=== PATIENT | female | born 1975 | race Caucasian/White ===

== ENCOUNTER → 2019-01-13 | Outpatient (CLI) | payer OTHER ==
--- NOTE | 2019-01-30 08:37 | Diagnostic Imaging Report ---
#[id number] - [id number] #BILATERAL FIRST EVER DIGITAL SCREENING MAMMOGRAM WITH CAD: 01/13/2019 CLINICAL: Routine screening. Routine screening. Baseline exam. No prior exams were available for comparison. Current study contains 6 films. The tissue of both breasts is heterogeneously dense. This may lower the sensitivity of mammography. Current study was also evaluated with a Computer Aided Detection (CAD) system. There is a 7 mm oval mass with an obscured margin in the right breast at 4 o'clock in the retroareolar region. No other significant masses, calcifications, or other findings are seen in either breast. IMPRESSION: INCOMPLETE: NEEDS ADDITIONAL IMAGING EVALUATION The 7 mm oval mass in the right breast is indeterminate. Compression views as well as a possible ultrasound are recommended. The patient will be contacted by the Mammography Department to schedule this appointment. TAMMI MURRAY M.D. ct/penrad:01/27/2019 12:06:35 Engineering Leader: Renée NATION)(Anila), [facility] letter sent: Additional Imaging Needed Mammogram BI-RADS: 0 Indeterminate
== END ==
LOC: MAMMO 08:58
PROVIDERS: ATTEND Internal Medicine
DX: Z12.31 Encounter for screening mammogram for malignant neoplasm of breast (principal)
CPT/HCPCS: 77067

== ENCOUNTER → 2019-02-09 | Outpatient (CLI) | payer OTHER ==
--- NOTE | 2019-02-10 08:32 | Diagnostic Imaging Report ---
#[id number] - USBRELIMRT ULTRASOUND OF THE RIGHT BREAST : 02/09/2019 CLINICAL: Routine screening. Comparison is made to exams dated: 02/09/2019 mammogram and 01/13/2019 mammogram - [facility]. Real-time ultrasound was performed on the right breast. There is a benign 7 mm oval cyst in the right breast at 4 o'clock posterior depth. This oval cyst is anechoic. This correlates with mammography findings. Additional scattered subcentimeter cysts are noted in this quadrant. IMPRESSION: BENIGN There is no sonographic evidence of malignancy. The 7 mm oval cyst in the right breast is benign. A 1 year screening mammogram is recommended. TAMMI MURRAY M.D. ct/:02/09/2019 15:04:44 Shear Tender: Renée MTZ(R)(M), [facility] letter sent: Normal Exam Ultrasound BI-RADS: 2 Benign
--- NOTE | 2019-02-10 08:32 | Diagnostic Imaging Report ---
#[id number] - MGDXRT #UNILATERAL RIGHT DIGITAL DIAGNOSTIC MAMMOGRAM WITH SPOT COMPRESSION: 02/09/2019 Comparison is made to exam dated: 01/13/2019 mammogram - [facility]. The tissue of the right breast is heterogeneously dense. This may lower the sensitivity of mammography. There is a benign 7 mm oval cyst in the right breast at 4 o'clock anterior depth. This is seen in additional views. This correlates with ultrasound findings. No other significant masses or calcifications are seen in the breast. IMPRESSION: BENIGN See the report for ultrasound performed the same day for additional details. There is no mammographic evidence of malignancy. A 1 year screening mammogram is recommended. The patient will be notified by letter of the results. TAMMI MURRAY M.D. ct/penrad:02/09/2019 15:03:03 Ripshear Operator: Renée NATION)(Anila), [facility] letter sent: Normal Exam Mammogram BI-RADS: 2 Benign
== END ==
LOC: MAMMO 13:29
PROVIDERS: ATTEND Internal Medicine
DX: N63.10 Unspecified lump in the right breast, unspecified quadrant (principal)

== ENCOUNTER → 2020-08-05 | Outpatient (CLI) | payer OTHER | LOC: MAMMO 09:47 | PROVIDERS: ATTEND Internal Medicine | DX: Z12.31 Encounter for screening mammogram for malignant neoplasm of breast (principal) | CPT/HCPCS: 77067 ==

== ENCOUNTER → 2022-02-23 | Outpatient (CLI) | payer BC | LOC: MAMMO 08:33 | PROVIDERS: ATTEND Internal Medicine | DX: Z12.31 Encounter for screening mammogram for malignant neoplasm of breast (principal) | CPT/HCPCS: 77067 ==